=== PATIENT | male | born 1960 | race Caucasian/White ===

== ENCOUNTER 2020-08-26 15:19 | Emergency (ER) | payer MEDICAID ==
[~2020-08-26] VITALS: Ht 177.8 cm; Wt 87.3 kg
--- NOTE | 2020-08-26 17:18 | NUR ---
JELENA Svedsen at bedside
[2020-08-26] MEDS ORDERED: ondansetron/PF 4mg/2ml inj IV ONE (17:25)
[2020-08-26] MEDS ORDERED: normal saline 1000ml 1,000 ML IV ONE (17:25)
--- NOTE | 2020-08-26 17:56 | NUR ---
ultrasound at bedside
[2020-08-26] MEDS ORDERED: ketorolac tromethamine 15mg/ml inj. IV ONE (18:00)
[2020-08-26 18:20] LABS: BASOPHILS % (AUTO) 0.1 % (0-1); EOSINOPHILS # (AUTO) 0.1 X10'3 (0-0.9); EOSINOPHILS % (AUTO) 1.9 % (0-6); HEMATOCRIT 43.7 % (42.0-52.0); HEMOGLOBIN 14.8 g/dl (14.0-17.9); LYMPHOCYTES # (AUTO) 2.2 X10'3 (1.1-4.8); LYMPHOCYTES % (AUTO) 34.5 % (21-51); MEAN CORPUSCULAR HEMOGLOBIN 31.7 PG (27.0-31.0); MEAN CORPUSCULAR VOLUME 93.5 FL (78-98); MEAN PLATELET VOLUME 8.2 FL (7.4-10.4); MONOCYTES # (AUTO) 0.8 X10'3 (0-0.9); MONOCYTES % (AUTO) 13.1 % (2-12); NEUTROPHILS # (AUTO) 3.2 X10'3 (1.8-7.7); NEUTROPHILS % (AUTO) 50.4 % (42-75); PLATELET COUNT 272 X10'3 (140-440); RED BLOOD COUNT 4.67 X10'6 (4.70-6.10); RED CELL DISTRIBUTION WIDTH 14.1 % (11.5-14.5); WHITE BLOOD COUNT 6.3 X10'3 (4.5-11.0)
[2020-08-26] MEDS ORDERED: LEVO500T89 PO (18:36)
[2020-08-26] MEDS ORDERED: CefTRIAXone 1000mg IM Kit (w/lidocaine diluent) IM STA (18:37)
[2020-08-26] MEDS ORDERED: azithromycin 250mg tablet PO ONE (18:40)
[2020-08-26] MEDS ORDERED: DOXY100C76 PO (18:40)
[2020-08-26 18:45] LABS: ALANINE AMINOTRANSFERASE 55 U/L (12-78); ALBUMIN/GLOBULIN RATIO 0.8 (1.1-1.5); ALKALINE PHOSPHATASE 111 IU/L (46-116); ANION GAP 6 (8-16); ASPARTATE AMINO TRANSFERASE 29 U/L (10-37); BILIRUBIN,TOTAL 0.3 MG/DL (0.1-1.0); BLOOD UREA NITROGEN 15 MG/DL (7-18); BUN/CREATININE RATIO 18.5 (5.4-32.0); CALCIUM 7.9 MG/DL (8.5-10.1); CHLORIDE 106 MMOL/L (99-107); CREATININE 0.81 MG/DL (0.60-1.10); ETHANOL < 0.010 GM/DL (0.0-0.010); GLUCOSE 239 MG/DL (70-104); LIPASE < 50 U/L (73-393); POTASSIUM 4.1 MMOL/L (3.5-5.1); SODIUM 140 MMOL/L (135-145); TOTAL CARBON DIOXIDE 27.7 MMOL/L (24-32); TOTAL PROTEIN 6.7 G/DL (6.4-8.2); eGFR > 90 ML/MIN
[2020-08-26 19:03] VITALS: BP 118/75
[2020-08-26 19:15] LABS: URINE AMPHETAMINE SCREEN POSITIVE (Neg); URINE BARBITUATE SCREEN NEGATIVE (Neg); URINE BENZODIAZEPINES SCREEN NEGATIVE (Neg); URINE CANNABINOID SCREEN NEGATIVE (Neg); URINE COCAINE SCREEN NEGATIVE (Neg); URINE METHADONE SCREEN NEGATIVE (Neg); URINE OPIATE SCREEN NEGATIVE (Neg); URINE PHENCYCLIDINE SCREEN NEGATIVE (Neg)
[2020-08-26 19:21] LABS: CLARITY,URINE CLOUDY (Clear); COLOR,URINE YELLOW (Yellow); GLUCOSE, URINE >=1000 mg/dl (Neg); KETONES,URINE NEGATIVE (Neg); LEUKOCYTE ESTERASE ,URINE NEGATIVE (Neg); NITRITES, URINE NEGATIVE (Neg); OCCULT BLOOD,URINE TRACE-INTACT (Neg); PH,URINE 5.5 (4.8-8.0); PROTEIN,URINE NEGATIVE (Neg); UROBILINOGEN,URINE 0.2 E.U/dL (0.2-1.0)
[2020-08-26 19:23] LABS: UA COLLECTION TYPE CLN CATCH MIDSTREAM
[2020-08-26 19:29] LABS: BACTERIA,URINE 4+ /HPF (Neg); RBC,URINE 0-2 /HPF (0-2); SQUAMOUS EPITHELIAL CELL,UR FEW /LPF (FEW); WBC CLUMPS,URINE FEW /HPF (NEGATIVE)
== END 2020-08-26 19:04 | disposition home or self-care (01) ==
LOC: ER 15:20
DX: N45.1 Epididymitis (principal); E11.65 Type 2 diabetes mellitus with hyperglycemia; F17.200 Nicotine dependence, unspecified, uncomplicated; Z72.89 Other problems related to lifestyle; Z87.442 Personal history of urinary calculi
CPT/HCPCS: 36415; 76870; 80053; 80305; 80320; 81001; 82948; 83690; 85025; 87077; 87088; 87186; 87491; 87591; 93005; 93976; 96361; 96372; 96374; 96375; 99285; J0696; J1885; J2405; J7030

== ENCOUNTER 2021-01-06 08:59 | Emergency (ER) | payer MEDICAID ==
[~2021-01-06] VITALS: Ht 177.8 cm; Wt 90.9 kg
[2021-01-06 09:37] LABS: BASOPHILS % (AUTO) 0.4 % (0-1); EOSINOPHILS # (AUTO) 0.1 X10'3 (0-0.9); EOSINOPHILS % (AUTO) 0.6 % (0-6); HEMATOCRIT 46.2 % (42.0-52.0); HEMOGLOBIN 15.9 g/dl (14.0-17.9); LYMPHOCYTES # (AUTO) 0.5 X10'3 (1.1-4.8); LYMPHOCYTES % (AUTO) 5.5 % (21-51); MEAN CORPUSCULAR HEMOGLOBIN 31.9 PG (27.0-31.0); MEAN CORPUSCULAR HGB CONC 34.4 g/dL (33.0-36.5); MEAN CORPUSCULAR VOLUME 92.7 FL (78-98); MEAN PLATELET VOLUME 8.5 FL (7.4-10.4); MONOCYTES # (AUTO) 0.3 X10'3 (0-0.9); MONOCYTES % (AUTO) 3.6 % (2-12); NEUTROPHILS # (AUTO) 8.7 X10'3 (1.8-7.7); NEUTROPHILS % (AUTO) 89.9 % (42-75); PLATELET COUNT 257 X10'3 (140-440); RED BLOOD COUNT 4.98 X10'6 (4.70-6.10); RED CELL DISTRIBUTION WIDTH 13.5 % (11.5-14.5); WHITE BLOOD COUNT 9.6 X10'3 (4.5-11.0)
[2021-01-06 09:45] LABS: ALANINE AMINOTRANSFERASE 81 U/L (12-78); ALBUMIN 3.6 G/DL (3.4-5.0); ALBUMIN/GLOBULIN RATIO 0.8 (1.1-1.5); ALKALINE PHOSPHATASE 103 IU/L (46-116); AMYLASE 27 U/L (25-115); ANION GAP 15 (8-16); ASPARTATE AMINO TRANSFERASE 37 U/L (10-37); BILIRUBIN,TOTAL 0.7 MG/DL (0.1-1.0); BLOOD UREA NITROGEN 21 MG/DL (7-18); BUN/CREATININE RATIO 20.4 (5.4-32.0); CHLORIDE 103 MMOL/L (99-107); CREATININE 1.03 MG/DL (0.60-1.10); GLUCOSE 303 MG/DL (70-104); LIPASE 54 U/L (73-393); SODIUM 138 MMOL/L (135-145); TOTAL CARBON DIOXIDE 20.5 MMOL/L (24-32); eGFR 74 ML/MIN
[2021-01-06] MEDS ORDERED: pantoprazole 40 MG vial IV ONE (10:00)
[2021-01-06] MEDS ORDERED: famotidine/PF 10 mg/ml inj IV ONE (10:00)
[2021-01-06] MEDS ORDERED: normal saline 1000ML IV soln IVB ONE (10:00)
[2021-01-06] MEDS ORDERED: ONDA4TAB6 PO (10:57)
[2021-01-06 11:18] LABS: CLARITY,URINE CLEAR (Clear); COLOR,URINE DARK YELLOW (Yellow); GLUCOSE, URINE 500 mg/dl (Neg); KETONES,URINE NEGATIVE (Neg); OCCULT BLOOD,URINE NEGATIVE (Neg); PROTEIN,URINE TRACE mg/dl (Neg); UA COLLECTION TYPE CLN CATCH MIDSTREAM
[2021-01-06 11:19] LABS: LEUKOCYTE ESTERASE ,URINE NEGATIVE (Neg); NITRITES, URINE NEGATIVE (Neg); UROBILINOGEN,URINE 0.2 E.U/dL (0.2-1.0)
[2021-01-06 11:20] LABS: BACTERIA,URINE NONE SEEN /HPF (Neg); MUCUS STRANDS MANY /LPF (Neg); RBC,URINE NONE SEEN /HPF (0-2); SQUAMOUS EPITHELIAL CELL,UR FEW /LPF (FEW); TRANSITIONAL EPI CELLS,URINE FEW /HPF; WBC,URINE 0-4 /HPF (0-4)
[2021-01-06] MEDS ORDERED: ondansetron/PF 4mg/2ml inj IV ONE (11:20)
--- NOTE | 2021-01-06 11:20 | NUR ---
notified dr london that pt is c/o nausea ,verbal order for zofran 4 mg iv once.
[2021-01-06 11:21] LABS: HYALINE CASTS 0-3 /LPF (NEGATIVE)
[2021-01-06 12:25] VITALS: BP 118/66
== END 2021-01-06 12:28 | disposition home or self-care (01) ==
LOC: ER 08:59
DX: K52.9 Noninfective gastroenteritis and colitis, unspecified (principal); A05.9 Bacterial foodborne intoxication, unspecified; E11.65 Type 2 diabetes mellitus with hyperglycemia; R11.2 Nausea with vomiting, unspecified; R10.13 Epigastric pain; Z87.442 Personal history of urinary calculi; Z72.89 Other problems related to lifestyle; Z79.899 Other long term (current) drug therapy
CPT/HCPCS: 36415; 80053; 81001; 82150; 83690; 85025; 96361; 96374; 96375; 99284; C9113; J2405; J3490; J7030

== ENCOUNTER 2021-05-10 08:26 | Emergency (ER) | payer MEDICAID ==
[~2021-05-10] VITALS: Ht 177.8 cm; Wt 90.9 kg
[~2021-05-10 08:26] MED LIST: ONDA4TAB6 PO
[2021-05-10 08:32] VITALS: BP 135/78
[2021-05-10] MEDS ORDERED: HYDR28CR14 TOP (09:14)
[2021-05-10] MEDS ORDERED: LORA-512 PO (09:14)
[2021-05-10] MEDS ORDERED: triamcinolone acetonide 40mg/ml inj IM ONE (09:15)
== END 2021-05-10 09:43 | disposition home or self-care (01) ==
LOC: ER 08:26
DX: L23.7 Allergic contact dermatitis due to plants, except food (principal); E11.9 Type 2 diabetes mellitus without complications; Z87.440 Personal history of urinary (tract) infections; Z72.89 Other problems related to lifestyle; Z79.899 Other long term (current) drug therapy
CPT/HCPCS: 96372; 99283; J3301

== ENCOUNTER 2021-12-28 10:39 | Emergency (ER) | payer MEDICAID ==
[~2021-12-28] VITALS: Ht 177.8 cm; Wt 86.4 kg
[~2021-12-28 10:39] MED LIST changes: +HYDR28CR14 TOP
[2021-12-28 10:43] VITALS: BP 125/80
[2021-12-28] MEDS ORDERED: ondansetron 4mg rapidly disintigrating tab PO ONE (10:55)
[2021-12-28] MEDS ORDERED: pantoprazole 40mg Tablet.DR PO STA (11:03)
[2021-12-28] MEDS ORDERED: ONDA4TAB12 PO (11:29)
[2021-12-28] MEDS ORDERED: LOPE1TAB46 PO (11:29)
[2021-12-29] MEDS ORDERED: pantoprazole 40mg Tablet.DR PO SCH (07:30)
== END 2021-12-28 11:43 | disposition home or self-care (01) ==
LOC: ER 10:40
DX: A08.4 Viral intestinal infection, unspecified (principal); E11.9 Type 2 diabetes mellitus without complications; Z59.00 Homelessness unspecified
CPT/HCPCS: 99283

== ENCOUNTER 2024-07-08 06:59 | Outpatient (CLI) | payer MEDICAID ==
[~2024-07-08 06:59] MED LIST changes: +IBUP-1985 PO; +LOPE1TAB46 PO; +ONDA-243 PO
--- NOTE | 2024-07-08 09:07 | RADIOLOGY REPORT ---
CLINICAL INDICATION: LEFT HIP PAIN COMPARISON: None TECHNIQUE: Multiplanar, multi-sequence MRI of the left hip was performed without intravenous contrast. Contralateral hip is included on large [id number] images. Contrast: None INTERPRETATION: Joint space /bones: There is no effusion. Severe left hip joint space narrowing with [id number] co ntact and complete loss of the articular cartilage of the both sides of the joint. There is subchondr al bone marrow edema in the lateral acetabulum and the femoral head. Small left hip joint effusion. Tendons, muscles and bursae: There is full-thickness tear of the left gluteus minimus tendon and tear of the anterior footprint of gluteus medius. There is no evidence of bursitis. 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 IMPRESSION: 1. Severe left hip osteoarthritis. 2. Full-thickness tear of left gluteus minimus tendon and tear of the anterior footprint of gluteus m edius.
== END 2024-07-08 23:59 | disposition home or self-care (01) ==
LOC: MRI02 06:59
PROVIDERS: ATTEND Family Medicine
DX: S76.012A Strain of muscle, fascia and tendon of left hip, initial encounter (principal); M25.552 Pain in left hip; X58.XXXA Exposure to other specified factors, initial encounter; Y93.89 Activity, other specified; Y92.89 Other specified places as the place of occurrence of the external cause; Y99.8 Other external cause status
CPT/HCPCS: 73721